=== PATIENT | female | born 1980 | race Caucasian/White ===

== ENCOUNTER → 2017-04-24 15:59 | Outpatient (CLI) | payer MEDICAID ==
[2014-01-23 10:49] VITALS: BMI 33.3
[~2017-04-24 15:59] MED LIST: HYDROCODON-ACE1 EAC7 PO; LOPERAMIDE HCL2 MG PO; NORCO 7.5/325 T1 TA1 PO; PHENERGAN25 M1 PO
== END | disposition home or self-care (01) ==
LOC: D.CT 15:59
DX: R10.9 Unspecified abdominal pain (principal)

== ENCOUNTER → 2017-05-30 13:52 | Outpatient (CLI) | payer MEDICAID ==
[2014-01-23 10:49] VITALS: BMI 33.3
== END | disposition home or self-care (01) ==
LOC: D.MRI 13:52
DX: D49.59 Neoplasm of unspecified behavior of other genitourinary organ (principal)